=== PATIENT | male | born 1985 | race Two or more races ===

== ENCOUNTER 2018-09-23 21:50 | Emergency (ER) | payer MEDICAID, OTHER ==
[~2018-09-23] VITALS: Ht 185.4 cm; Wt 96.7 kg
[2018-09-23] MEDS ORDERED: LIDOCAINE-MPF 1%, 5ML ONE (22:04)
[2018-09-23] MEDS ORDERED: DIPH,PERTUSS(ACELL),TET VAC/PF 0.5 ML IM-VACC ONE ×2 (22:05→22:30)
[2018-09-23] MEDS ORDERED: HYDROcodone/APAP 5/325 TABLET ONE (22:30)
[2018-09-23] MEDS ORDERED: HYDROcodone/APAP 5/325 TABLET PO ONE (22:30)
[2018-09-23] MEDS ORDERED: ONDANSETRON ODT 4 MG ONE (22:30)
[2018-09-23] MEDS ORDERED: LIDOCAINE 1%, 10ML INFIL ONE (22:30)
[2018-09-23] MEDS ORDERED: ONDANSETRON ODT 4 MG PO ONE (22:30)
[2018-09-23] MEDS ORDERED: BACITRACIN ZINC OINT 500U/GM, 0.9 GM ONE (22:54)
[2018-09-23 23:51] VITALS: BP 128/85
== END 2018-09-23 23:54 | disposition home or self-care (01) ==
LOC: ED 23:06
DX: S01.81XA Laceration without foreign body of other part of head, initial encounter (principal); S01.21XA Laceration without foreign body of nose, initial encounter; S06.4X0A Epidural hemorrhage without loss of consciousness, initial encounter; F17.200 Nicotine dependence, unspecified, uncomplicated; Y08.89XA Assault by other specified means, initial encounter; Y93.89 Activity, other specified; Y92.89 Other specified places as the place of occurrence of the external cause; Y99.8 Other external cause status
CPT/HCPCS: 12053; 70486; 90471; 90715; 99285; Q0162